=== PATIENT | male | born 1970 | race Caucasian/White ===

== ENCOUNTER 2022-11-19 22:12 | Observation (INO) | payer BC, SELFPAY ==
--- NOTE | 2022-11-19 | ECG_ITS ---
Test Reason : CHEST PAIN Blood Pressure : / mmHG Vent. Rate : 134 BPM Atrial Rate : 000 BPM P-R Int : 000 ms QRS Dur : 068 ms QT Int : 292 ms P-R-T Axes : 000 012 016 degrees QTc Int : 436 ms Atrial fibrillation with rapid ventricular response Abnormal ECG When compared with ECG of 09-AUG-2016 21:29, Atrial fibrillation has replaced Sinus rhythm Vent. rate has increased BY 66 BPM Referred By: Generic ED Physician Electronically Signed By:JAYDA BAUTISTA
--- NOTE | ~2022-11-19 | XR_ITS ---
EXAMINATION: XR CHEST CLINICAL INFORMATION: Shortness of breath COMPARISON: 08/09/2016 TECHNIQUE: Frontal view of the chest was obtained. FINDINGS: The lungs are clear with no focal consolidation. No evidence of pneumothorax, pulmonary edema, or pleural effusions. The cardiomediastinal silhouette is unremarkable. No acute osseous findings. XR/XR chest 1V IMPRESSION: No acute cardiopulmonary findings.
[2022-11-19 22:27] VITALS: BP 153/91; PULSE 110; RESP 16; TEMP 36.1; O2SAT 98; BMI 32.5
[2022-11-19 22:38] LABS: Hematocrit 44.1 % (42.0-52.0); Hemoglobin 15.9 g/dl (14.0-18.0); Mean Corpuscular HGB Conc 36.1 g/dl (31.0-36.0); Mean Corpuscular Hemoglobin 30.6 pg (27.0-33.0); Mean Corpuscular Volume 84.8 fL (80.0-98.0); Mean Platelet Volume 9.4 fL (9.4-12.4); Platelet Count 204 X10*3/uL (160-400); Red Cell Distribution Width 12.7 % (11.0-16.0); White Blood Count 9.1 X10*3/uL (4.8-10.8)
[2022-11-19 22:55] LABS: Alanine Aminotransferase 66 U/L (0-40); Albumin Level 4.3 g/dL (3.5-5.0); Alkaline Phosphatase 96 U/L (39-117); Anion Gap 16 (12-20); Aspartate Amino Transferase 51 U/L (5-37); Bilirubin Total 0.8 mg/dL (0.0-1.0); Blood Urea Nitrogen 25 mg/dL (9-16); Carbon Dioxide 23 mmol/L (22-29); Chloride 104 mmol/L (96-108); Estimated Glomerular Filt Rate > 60; Glucose Random 106 mg/dL (60-115); Potassium 3.8 mmol/L (3.3-5.1); Sodium 139 mmol/L (135-145); Total Protein 7.4 g/dL (6.5-8.0)
[2022-11-19 23:27] LABS: B Type Natriuretic Peptide 30 pg/mL (<100)
[2022-11-19] MEDS: Metoprolol Tartrate 5 MG/5 ML VIAL IVPUSH (23:40)
[2022-11-19 23:46] VITALS: BP 134/90; PULSE 96; RESP 15; TEMP 36.8; O2SAT 96
--- NOTE | 2022-11-19 23:53 | PC.NURSE ---
Pt aox4 resting at the bedside. Breaths are even and unlabored. Sinus tach on monitor with HR between 110-165bpm. Metoprolol administered as ordered. Pt tolerated well. Reports no pain or discomfort at this time. Will continue to monitor.
[2022-11-20 00:07] LABS: COVID-19 Test Negative (Negative); IDNOW Serial# BCCEAD1C
[2022-11-20] MEDS: Metoprolol Tartrate 5 MG/5 ML VIAL IVPUSH ×2 (00:32→02:59)
--- NOTE | 2022-11-20 00:35 | PC.NURSE ---
Pt medicated as ordered. Breaths are even and unlabored. Sinus tach on monitor with HR 130's. Reports no pain or discomfort at this time. Will continue to monitor.
[2022-11-20 00:38] VITALS: BMI 32.8
--- NOTE | 2022-11-20 00:44 | ED.CHESTPAIN ---
HPI - Chest Pain General Chief Complaint: Chest Pain Stated Complaint: short of breath, chest pain, heart racing Time Seen by Provider: 11/19/22 22:56 Source: patient Mode of arrival: ambulatory History of Present Illness HPI narrative: 52-year-old male who states that he started having chest pain at approximately 16:00 today and the pain got worse after his run with shortness of breath but denies any other medical problems. Patient states that he tried to go running today but was only able to run for approximately 5-6 minutes and then he became very short of breath. He denies any recent travel, is not on any medications, and denies any calf pain. He does state that he had several beers last night with some friends. Patient also describes feeling lightheaded. Related Data Allergies Allergy/AdvReac Type Severity Reaction Status Date / Time No Known Allergies Allergy Unverified 06/03/20 15:33 Review of Systems Review of Systems: Pertinent positives and negatives as stated in HPI [facility]LY [facility] Past Medical History Source: nursing notes reviewed Social History Social History Alcohol intake: current Alcohol intake frequency: a few times a week Alcohol type: hard liquor Use of substances other than those prescribed or required for medical reasons: No Advance Directives: No Advance Directives Information Provided: No Physical Exam Vital Signs: Vital Signs: Last Vital Signs Temp 98.3 F 11/19/22 23:46 Pulse 96 11/19/22 23:46 Resp 15 11/19/22 23:46 BP 134/90 H 11/19/22 23:46 Pulse Ox 96 11/19/22 23:46 O2 Del Method 11/19/22 23:46 BMI result Body Mass Index 32.8 VITAL SIGNS: Reviewed. GENERAL: Well developed, well nourished, in no acute distress. HEAD: Normocephalic/atraumatic EYES: PERRLA, EOMI LUNGS: Normal breath sounds. No adventitious sounds or accessory muscle use. SpO2<96> CARDIOVASCULAR: IRR/IRR without noted murmurs ABDOMEN: Soft, non-tender, non-distended with bowel sounds. MUSCULOSKELETAL: No tenderness, deformities, or effusions noted on gross inspection. EXTREMITIES: No cyanosis, clubbing or edema. SKIN: Inspection of the skin reveals no rashes NEUROLOGIC: Alert and oriented x 4. Strength and sensation to light touch were grossly intact x 4. Medications Administered Discontinued Medications Generic Name Dose Route Start Last Admin Trade Name Freq PRN Reason Stop Dose Admin Metoprolol Tartrate 5 mg 11/19/22 23:26 11/19/22 23:40 Metoprolol Tartrate 5 Mg/5 Ml Vial IVPUSH 11/19/22 23:27 5 mg ONCE ONE Administration Metoprolol Tartrate 5 mg 11/20/22 00:14 11/20/22 00:32 Metoprolol Tartrate 5 Mg/5 Ml Vial IVPUSH 11/20/22 00:15 5 mg ONCE ONE Administration Medical Decision Making Medical Decision Making MDM Narrative: 52-year-old male who comes in with lightheadedness, shortness of breath and a fast heart rate. Patient has no other medical history and has otherwise been feeling well. Labs, EKG, Lopressor. 2327: 5 mg of Lopressor, IV push given with minimal effect on heart rate. 0015: 5 mg of Lopressor, IV push given with significant improvement of heart rate. On review of laboratory investigations there are are no findings to suggest infection, anemia, electrolyte abnormalities. 0209: I gave patient p.o. 25 mg Lopressor. Differential Diagnosis Please see the discussion above Consult Healthcare Provider Management of the patient was discussed with: Hospitalist 0200: I discussed the case with inpatient hospitalist who accepts admission. Lab Data Please see the discussion above 11/19/22 22:32 11/19/22 22:32 Labs: Lab Results 11/19/22 11/19/22 11/19/22 Range/Units 22:32 22:32 22:32 WBC 9.1 (4.8-10.8) X10*3/uL RBC 5.20 (4.60-5.80) X10*6/uL Hgb 15.9 (14.0-18.0) g/dl Hct 44.1 (42.0-52.0) % MCV 84.8 (80.0-98.0) fL MCH 30.6 (27.0-33.0) pg MCHC 36.1 H (31.0-36.0) g/dl RDW 12.7 (11.0-16.0) % Plt Count 204 (160-400) X10*3/uL MPV 9.4 (9.4-12.4) fL Absolute Nucleated RBC 0.000 (0.0-0.012) X10*3/uL Nucleated RBC % (auto) 0.0 (0.0-0.2) /100WBC Sodium 139 (135-145) mmol/L Potassium 3.8 (3.3-5.1) mmol/L Chloride 104 (96-108) mmol/L Carbon Dioxide 23 (22-29) mmol/L Anion Gap 16 (12-20) BUN 25 H (9-16) mg/dL Creatinine 0.90 (0.5-1.4) mg/dL Estim Creat Clear Calc 113.0 Estimated GFR > 60 Random Glucose 106 (60-115) mg/dL Calcium 9.0 (8.4-10.2) mg/dL Magnesium 2.1 (1.6-2.6) mg/dL Total Bilirubin 0.8 (0.0-1.0) mg/dL AST 51 H (5-37) U/L ALT 66 H (0-40) U/L Alkaline Phosphatase 96 (39-117) U/L Troponin I High Sens 25.0 (<3.5-35.0) ng/L B-Natriuretic Peptide (<100) pg/mL Total Protein 7.4 (6.5-8.0) g/dL Albumin 4.3 (3.5-5.0) g/dL COVID-19 (DAVID) (Negative) COVID-19 Clin Com 11/19/22 11/19/22 11/20/22 Range/Units 22:32 23:43 01:34 WBC (4.8-10.8) X10*3/uL RBC (4.60-5.80) X10*6/uL Hgb (14.0-18.0) g/dl Hct (42.0-52.0) % MCV (80.0-98.0) fL MCH (27.0-33.0) pg MCHC (31.0-36.0) g/dl RDW (11.0-16.0) % Plt Count (160-400) X10*3/uL MPV (9.4-12.4) fL Absolute Nucleated RBC (0.0-0.012) X10*3/uL Nucleated RBC % (auto) (0.0-0.2) /100WBC Sodium (135-145) mmol/L Potassium (3.3-5.1) mmol/L Chloride (96-108) mmol/L Carbon Dioxide (22-29) mmol/L Anion Gap (12-20) BUN (9-16) mg/dL Creatinine (0.5-1.4) mg/dL Estim Creat Clear Calc Estimated GFR Random Glucose (60-115) mg/dL Calcium (8.4-10.2) mg/dL Magnesium (1.6-2.6) mg/dL Total Bilirubin (0.0-1.0) mg/dL AST (5-37) U/L ALT (0-40) U/L Alkaline Phosphatase (39-117) U/L Troponin I High Sens 15.0 (<3.5-35.0) ng/L B-Natriuretic Peptide 30 (<100) pg/mL Total Protein (6.5-8.0) g/dL Albumin (3.5-5.0) g/dL COVID-19 (DAVID) Negative (Negative) COVID-19 Clin Com See Note Independent Interpretation I performed an independent interpretation of an: EKG Interpretation: Atrial fibrillation with RVR, HR-134, no STEMI, QRS/QTC is within normal limits. Discharge Plan Discharge Clinical Impression: Atrial fibrillation with RVR, New onset a-fib Patient Disposition: Admitted As Inpatient
[2022-11-20 00:56] LABS: Magnesium 2.1 mg/dL (1.6-2.6)
--- NOTE | 2022-11-20 01:17 | ECG_ITS ---
Test Reason : REPECT Blood Pressure : / mmHG Vent. Rate : 105 BPM Atrial Rate : 000 BPM P-R Int : 000 ms QRS Dur : 082 ms QT Int : 328 ms P-R-T Axes : 000 019 014 degrees QTc Int : 433 ms Atrial fibrillation with rapid ventricular response Abnormal ECG When compared with ECG of 19-NOV-2022 22:21, No significant changes seen Referred By: Rita Sevilla Electronically Signed By:JAYDA BAUTISTA
--- NOTE | 2022-11-20 02:16 | P.HPHOSP_ITS ---
History of Present Illness Date of Service: 11/20/22 Chief Complaint: Chest discomfort This is a 52-year-old male with no pertinent past medical history and not on prescription medications who presents to the emergency department for evaluation of chest discomfort and palpitations. Patient states he tried to go running at 16:00 and he had intense midsternal chest discomfort with palpitations. Patient had to stop as he could not run further. Patient denies similar complaints in the past. He denies ever seeing a learning disabled teacher or having heart rhythm problems. No thyroid issues. Patient denies fever, chills, cough, shortness of breath, abdominal pain, changes in urinary or bowel habits. Admits to drinking about 4- 6 beers every night. Never has had alcohol withdrawal. In the emergency department, patient was found to be in AFib with RVR Review of Systems Constitutional: Constitutional: Reports no additional constitutional complaints Cardiovascular: Cardiovascular: Reports chest pain and Reports palpitations Respiratory: Respiratory: Reports no additional respiratory complaints Gastrointestinal: Gastrointestinal: Reports no additional gastrointestinal complaints Genitourinary: Genitourinary: Reports no additional male genitourinary complaints Endocrine: Endocrine: Reports palpitations PMFSH Functional capacity: independent ambulation Pertinent family history: No family history of CAD Social History Alcohol intake: current Alcohol intake frequency: a few times a week Alcohol type: hard liquor Use of substances other than those prescribed or required for medical reasons: No Advance Directives: No Advance Directives Information Provided: No Meds Allergies Allergy/AdvReac Type Severity Reaction Status Date / Time No Known Allergies Allergy Unverified 06/03/20 15:33 Physical Exam Vital Signs and Narrative: Vital Signs: Last Vital Signs Temp 98.3 F 11/19/22 23:46 Pulse 96 11/19/22 23:46 Resp 15 11/19/22 23:46 BP 134/90 H 11/19/22 23:46 Pulse Ox 96 11/19/22 23:46 O2 Del Method 11/19/22 23:46 BMI result Body Mass Index 32.8 Middle-aged male lying in bed in no distress Neck supple, no JVD Irregularly irregular, S1-S2 heard Regular breath sounds bilaterally, no wheezing or crackles appreciated Abdomen soft nontender, no guarding, no rigidity Patient is awake, alert and oriented to self, place, time and person ; no focal motor deficit Psych: Normal mood No pedal edema Results Labs 11/19/22 22:32 11/19/22 22:32 Labs: Laboratory Results - last 24 hr 11/19/22 11/19/22 11/19/22 22:32 22:32 22:32 MCV 84.8 MCH 30.6 MCHC 36.1 H RDW 12.7 Plt Count 204 MPV 9.4 Absolute Nucleated RBC 0.000 Nucleated RBC % (auto) 0.0 Anion Gap 16 Estim Creat Clear Calc 113.0 Estimated GFR > 60 Random Glucose 106 Calcium 9.0 Magnesium 2.1 Total Bilirubin 0.8 AST 51 H ALT 66 H Alkaline Phosphatase 96 Troponin I High Sens 25.0 B-Natriuretic Peptide Total Protein 7.4 Albumin 4.3 COVID-19 (DAVID) COVID-19 [employer] Com 11/19/22 11/19/22 11/20/22 22:32 23:43 01:34 MCV MCH MCHC RDW Plt Count MPV Absolute Nucleated RBC Nucleated RBC % (auto) Anion Gap Estim Creat Clear Calc Estimated GFR Random Glucose Calcium Magnesium Total Bilirubin AST ALT Alkaline Phosphatase Troponin I High Sens 15.0 B-Natriuretic Peptide 30 Total Protein Albumin COVID-19 (DAVID) Negative COVID-19 Clin Com See Note Assessment and Plan (1) New onset a-fib: Status: Acute Plan This is a 52-year-old male with no pertinent past medical history and not on prescription medications who presents to the emergency department for evaluation of chest discomfort and palpitations. #. 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 Obtaining TSH and echocardiogram. Consulted Cardiology, appreciate assistance. Patient received IV and p.o. beta-percy in the ER. [id number] score is 0 #. Alcohol use disorder: Monitor CIWA. Obtaining magnesium and folate levels. Initiating thiamine DVT prophylaxis: Lovenox 40 mg daily Full code Regular diet Time Spent With Patient Time: Total time managing care of this patient today ____ minutes. Quality Stroke Does the patient have a stroke diagnosis?: No VTE Prior VTE?: No VTE Risk Level:: Medical - moderate - high VTE Device Contraindication: Treatment Not Indicated VTE Drug Contraindication: N/A - Med Ordered
[2022-11-20] MEDS: Metoprolol Tartrate 25 MG TABLET PO (02:59)
[2022-11-20] MEDS: Enoxaparin Sodium 40 MG/0.4 ML SYRINGE SUBCUT (03:00)
[2022-11-20] MEDS: dilTIAZem HCL 50 MG/10 ML VIAL 10 MG IVPUSH (03:29)
[2022-11-20] MEDS: Thiamine HCL 100 MG TABLET PO ×2 (03:29→08:48)
[2022-11-20 05:17] VITALS: BP 103/66; PULSE 90; RESP 13; TEMP 36.7; O2SAT 96
--- NOTE | 2022-11-20 05:20 | PC.NURSE ---
Med req completed
--- NOTE | 2022-11-20 05:22 | PC.NURSE ---
Pt aox4 resting at the bedside in no apparent distress. Breaths are even and unlabored. NSR on monitor with HR of 90. Reports no chest pain or discomfort at this time. Will continue to monitor.
[2022-11-20 05:38] LABS: MANUAL DIFF FLAG NO
[2022-11-20 05:42] LABS: Basophils Percent Auto 0.4 % (0-2); Eosinophils Absolute Auto 0.1 X10*3/uL (0.0-0.4); Hematocrit 42.8 % (42.0-52.0); Hemoglobin 15.2 g/dl (14.0-18.0); Imm Gran Abs Auto 0.02 X10*3/uL (0.00-0.03); Imm Gran Pct Auto 0.3 % (0.0-0.4); Lymphocytes Absolute Auto 2.4 X10*3/uL (1.2-4.9); Lymphocytes Percent Auto 34.3 % (20-40); Mean Corpuscular HGB Conc 35.5 g/dl (31.0-36.0); Mean Corpuscular Hemoglobin 30.1 pg (27.0-33.0); Mean Corpuscular Volume 84.8 fL (80.0-98.0); Mean Platelet Volume 9.8 fL (9.4-12.4); Monocytes Absolute Auto 0.6 X10*3/uL (0.1-1.2); Neutrophils Absolute Auto 3.8 x10*3/uL (2.0-8.3); Platelet Count 187 X10*3/uL (160-400); Red Blood Count 5.05 X10*6/uL (4.60-5.80); Red Cell Distribution Width 12.7 % (11.0-16.0)
[2022-11-20 06:05] LABS: Troponin-I High Sensitivity 10.4 ng/L (<3.5-35.0)
[2022-11-20 06:06] LABS: Anion Gap 14 (12-20); Blood Urea Nitrogen 20 mg/dL (9-16); Calcium 8.7 mg/dL (8.4-10.2); Carbon Dioxide 24 mmol/L (22-29); Chloride 107 mmol/L (96-108); Creatinine Clr Calc Pharmacy 123.1; Estimated Glomerular Filt Rate > 60; Glucose Random 97 mg/dL (60-115); Magnesium 2.1 mg/dL (1.6-2.6); Sodium 141 mmol/L (135-145)
[2022-11-20 06:34] LABS: Folate 11.2 ng/mL (> or = 4.0)
--- NOTE | 2022-11-20 07:00 | CA_ITS ---
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 The calculated ejection fraction is 54% by biplane method. - No obvious valvular pathology seen on this study. Findings Left Ventricle Normal left ventricular cavity size. The left ventricular systolic function is low normal. The calculated ejection fraction is 54% by biplane method. There is no evidence of regional wall motion abnormalities. Diastolic function is normal for age. There is mild septal asymmetric hypertrophy. LV peak GLS -17.6%. Right Ventricle Normal right ventricular cavity size and systolic function. Atria Both atria are normal in size. Aortic Valve There is a normal trileaflet aortic valve. There is no aortic valve stenosis. There is no aortic valve regurgitation. Mitral Valve The mitral valve appears normal. There is no mitral valve regurgitation. There is no mitral valve stenosis. Pulmonic Valve The pulmonic valve is likely normal. Tricuspid Valve There is trace tricuspid valve regurgitation. There is no evidence of pulmonary hypertension. Great Vessels The aortic annulus, sinuses of valsalva, and asc aorta are normal in size. Venous The inferior vena cava is normal in size and collapses less than 50% with inspiration. Pericardium/Pleural There is no evidence of pericardial effusion. Prior Study Comparison No prior study available for comparison. Recommendations, Care & Conclusions No obvious valvular pathology seen on this study. Measurements 2D Linear Measurements IVSd: 1.10 0.6-0.9/0.6-1.0 cm LVIDd: 4.71 3.9-5.3/4.2-5.9 cm LVIDd Index: 2.18 2.4-3.2/2.2-3.1 cm/m2 LVIDs: 3.33 2.0-3.6 cm LVPWd: 0.89 0.7-1.1 cm LV Mass: 204.55 67-162/88-224 g LV Mass Index: 94.70 43-95/49-115 g/m2 LVOT Diam: 2.30 3.0+(-)1.3 cm 2D Systolic Function EF 4C: 58.60 >55% EF 2C: 45.30 >55% EF BiP: 53.50 >55% Mitral Valve MV Pk E: 0.69 MV PK A: 0.63 MV Decel Time: 185.00 E/A: 1.10 E'Lateral: 10.70 E'Medial: 9.14 E/E' Med: 7.50 E/E' Lat: 6.40 PHT: 54.00 MVA PHT: 4.07 Decel [place]: 3.72 Aortic Valve AoV Pk Mook: 1.16 AoV Pk Grad: 5.00 SHONA: 3.66 LVOT LVOT Pk Mook: 0.97 LVOT Mn Mook: 0.60 LVOT VTI: 0.19 LVOT Pk Grad: 4.00 LVOT Mn Grad: 2.00 LVOT Diam: 2.30 LVOT Area: 4.15 Diastolic Function MV Pk E: 0.69 MV Pk A: 0.63 E/A: 1.10 E'Medial: 9.14 E/E' Med: 7.50 E' Laterial: 10.70 E/E' Lat: 6.40 Right Ventricle TAPSE (mm): 17.80 TVS' Mook: 10.80 Tricuspid Valve TR Pk Mook: 1.98 TR Pk Grad: 16.00 RA Press: 8.00 RVSP: 24.00 Great Vessels Aorta Sinus of Valsalva: 2.90 2.0-3.5 cm Ao Asc: 3.00 2.1-3.4 cm Pulmonary Veins Pulm Vein S/D 1.30 Pulmonary Valve PV Pk Mook: 0.88 Peak PV Grad: 3.00 Updated in Other Vendor System with Status of Final Damaso Sheriff MD electronically signed on 11/20/2022 4:16:15 PM with status of Final
--- NOTE | 2022-11-20 07:50 | PHA.MEDREC ---
Pharmacy Consult ? Medication Reconciliation Pharmacy has completed the medication reconciliation. Patient claims no regular medications but has a few prn medications. Unknown last date taken for them.
[2022-11-20 08:00] VITALS: BP 115/78; PULSE 71; RESP 14; TEMP 36.7; O2SAT 96
[2022-11-20] MEDS: 0.9 % Sodium Chloride Flush 3 ML SYRINGE IVFLUSH (08:48)
[2022-11-20] MEDS: Acetaminophen 325 MG TABLET 650 MG PO (08:48)
--- NOTE | 2022-11-20 10:17 | PM.CNCAR ---
History of Present Illness History of Present Illness Date of Service: 11/20/22 Chief complaint: Chest discomfort Narrative: This is a cardiology consultation regarding atrial fibrillation with rapid rate. Patient does not have any known cardiac issues. No history of any coronary artery disease or myocardial infarction or cardiomyopathy or in fact any other cardiac issues. He states he is fairly healthy. He runs every so often but not every day. Nonsmoker. History of excessive alcohol use. Yesterday, he tried to go running on all of a sudden felt a discomfort in the chest with palpitations. Then he came to the emergency room and found to be in atrial fibrillation rapid rate. It seems that he got IV diltiazem as well as IV metoprolol and oral metoprolol in the emergency room based on documentation. Now he is back in normal sinus rhythm. He states he is feeling better. No previous issues in this regard. He works in [employer]. Otherwise, no family history of any premature CAD or cardiomyopathy or any major cardiac issues. Review of Systems Review of Systems: Yes all other systems are reviewed and are negative Constitutional: Constitutional: Reports as per HPI and Reports no additional constitutional complaints Eyes: Eyes: Reports as per HPI and Denies no additional eye complaints ENT: Denies system reviewed and no additional complaints, except as documented and Reports as per HPI Cardiovascular: Cardiovascular: Reports as per HPI, Reports no additional cardiovascular complaints, Denies acrocyanosis, Denies cool extremities, Denies chest pain, Denies leg edema, Denies lightheadedness, Denies palpitations and Denies dyspnea Respiratory: Respiratory: Reports as per HPI, Denies no additional respiratory complaints and Denies dyspnea Gastrointestinal: Gastrointestinal: Reports as per HPI and Denies no additional gastrointestinal complaints Genitourinary: Genitourinary: Reports no additional male genitourinary complaints and Reports as per HPI Musculoskeletal: Musculoskeletal: Reports no additional musculoskeletal complaints and Reports as per HPI Integumentary/Breasts: Skin/Breast: Reports system reviewed and no additional complaints, except as docu Neurologic: Reports system reviewed and no additional complaints, except as documented and Reports as per HPI Psychiatric: Psychiatric: Reports no additional psychiatric complaints and Reports as per HPI Endocrine: Endocrine: Reports no additional endocrine complaints, Reports as per HPI and Denies palpitations Hematologic/Lymphatic: Hematologic/Lymphatic: Reports no additional hematologic/lymphatic complaints and Reports as per HPI Allergic/Immunologic: Allergic/Immunologic: Reports no additional allergic/immunologic complaints and Reports as per [facility] Past Medical History Cognitive capacity: No significant past medical history per patient. Functional capacity: independent ambulation Family History Family History (Updated 11/20/22 @ 10:19 by Damaso Sheriff MD) Brother Diabetes Sister Diabetes Social History Social History Alcohol intake: current Alcohol intake frequency: a few times a week Alcohol type: hard liquor Patient Tobacco Use Status: Never used Tobacco Use of substances other than those prescribed or required for medical reasons: No Advance Directives: No Advance Directives Information Provided: No Nutrition Risks: No Nutritional Risk Meds Allergies Allergy/AdvReac Type Severity Reaction Status Date / Time No Known Allergies Allergy Unverified 06/03/20 15:33 Active Medications: Current Medications Acetaminophen (Acetaminophen 325 Mg Tablet) 650 mg PO Q6H PRN PRN Reason: Pain, Mild (Pain Scale 1-3) Last Admin: 11/20/22 08:48 Dose: 650 mg Enoxaparin Sodium (Enoxaparin Sodium 40 Mg/0.4 Ml Syringe) 40 mg SUBCUT Q24H [facility] Last Admin: 11/20/22 03:00 Dose: 40 mg Melatonin (Melatonin 3 Mg Tablet) 6 mg PO BEDTIME PRN PRN Reason: Insomnia Ondansetron HCl (Ondansetron Hcl 4 Mg/2 Ml Vial) 4 mg IVPUSH Q8H PRN PRN Reason: Nausea and Vomiting Pharmacy Consult (Consult Rx Perform Med Rec) 1 each MISCELLANE ONCE PRN PRN Reason: Consult order Sodium Chloride (0.9 % Sodium Chloride Flush 3 Ml Syringe) 3 ml IVFLUSH QSHIFT [facility] Last Admin: 11/20/22 08:48 Dose: 3 ml Thiamine HCl (Thiamine Hcl 100 Mg Tablet) 100 mg PO DAILY [facility] Last Admin: 11/20/22 08:48 Dose: 100 mg Home Medications Medication Instructions Recorded Confirmed Last Taken Type esomeprazole magnesium 20 mg 1 cap PO DAILY@0630 11/20/22 11/20/22 Unknown History capsule,delayed release propylene glycol 1 %-glycerin 0.3 1 drp ophthalmic (eye) DAILY PRN 11/20/22 11/20/22 Unknown History % eye drops (Artificial Tears Dry Eye(S) (glycerin-peg)) valacyclovir 500 mg tablet 1 tab PO DAILY PRN Outbreak 11/20/22 11/20/22 Unknown History Physical Exam Vital Signs: Vital Signs: Last Vital Signs Temp 98.1 F 11/20/22 08:00 Pulse 71 11/20/22 08:00 Resp 14 11/20/22 08:00 BP 115/78 11/20/22 08:00 Pulse Ox 96 11/20/22 08:00 O2 Del Method 11/20/22 08:00 BMI result Body Mass Index 32.8 Objective Labs and Meds 11/20/22 05:32 11/20/22 05:32 Lab results: Laboratory Results - last 24 hr 11/19/22 11/19/22 11/19/22 22:32 22:32 22:32 WBC 9.1 RBC 5.20 Hgb 15.9 Hct 44.1 MCV 84.8 MCH 30.6 MCHC 36.1 H RDW 12.7 Plt Count 204 MPV 9.4 Immature Gran % (Auto) Neut % (Auto) Lymph % (Auto) Page % (Auto) Eos % (Auto) Baso % (Auto) Lymph # (Auto) Page # (Auto) Eos # (Auto) Baso # (Auto) Abs Immat Gran (auto) Absolute Neuts (auto) Absolute Nucleated RBC 0.000 Nucleated RBC % (auto) 0.0 Sodium 139 Potassium 3.8 Chloride 104 Carbon Dioxide 23 Anion Gap 16 BUN 25 H Creatinine 0.90 Estim Creat Clear Calc 113.0 Estimated GFR > 60 Random Glucose 106 Calcium 9.0 Magnesium 2.1 Total Bilirubin 0.8 AST 51 H ALT 66 H Alkaline Phosphatase 96 Troponin I High Sens 25.0 B-Natriuretic Peptide Total Protein 7.4 Albumin 4.3 Folate COVID-19 (DAVID) COVID-19 Clin Com 11/19/22 11/19/22 11/20/22 22:32 23:43 01:34 WBC RBC Hgb Hct MCV MCH MCHC RDW Plt Count MPV Immature Gran % (Auto) Neut % (Auto) Lymph % (Auto) Page % (Auto) Eos % (Auto) Baso % (Auto) Lymph # (Auto) Page # (Auto) Eos # (Auto) Baso # (Auto) Abs Immat Gran (auto) Absolute Neuts (auto) Absolute Nucleated RBC Nucleated RBC % (auto) Sodium Potassium Chloride Carbon Dioxide Anion Gap BUN Creatinine Estim Creat Clear Calc Estimated GFR Random Glucose Calcium Magnesium Total Bilirubin AST ALT Alkaline Phosphatase Troponin I High Sens 15.0 B-Natriuretic Peptide 30 Total Protein Albumin Folate COVID-19 (DAVID) Negative COVID-19 Clin Com See Note 11/20/22 11/20/22 11/20/22 05:32 05:32 05:32 WBC 7.0 RBC 5.05 Hgb 15.2 Hct 42.8 MCV 84.8 MCH 30.1 MCHC 35.5 RDW 12.7 Plt Count 187 MPV 9.8 Immature Gran % (Auto) 0.3 Neut % (Auto) 54.0 Lymph % (Auto) 34.3 Page % (Auto) 9.0 Eos % (Auto) 2.0 Baso % (Auto) 0.4 Lymph # (Auto) 2.4 Page # (Auto) 0.6 Eos # (Auto) 0.1 Baso # (Auto) 0.0 Abs Immat Gran (auto) 0.02 Absolute Neuts (auto) 3.8 Absolute Nucleated RBC 0.000 Nucleated RBC % (auto) 0.0 Sodium 141 Potassium 4.0 Chloride 107 Carbon Dioxide 24 Anion Gap 14 BUN 20 H Creatinine 0.83 Estim Creat Clear Calc 123.1 Estimated GFR > 60 Random Glucose 97 Calcium 8.7 Magnesium 2.1 Total Bilirubin AST ALT Alkaline Phosphatase Troponin I High Sens 10.4 B-Natriuretic Peptide Total Protein Albumin Folate 11.2 COVID-19 (DAVID) COVID-19 Clin Com ECG Interpretation: Initial EKG with atrial fibrillation rapid rate of 134/Min. Currently normal sinus rhythm. Imaging Radiologist's impression: Impressions Chest X-Ray 11/20/22 02:30 IMPRESSION: No acute cardiopulmonary findings. Assessment and Plan (1) Atrial fibrillation with RVR: Status: Acute (2) Excessive drinking alcohol: Status: Acute Plan Atrial fibrillation rapid ventricular rate probably precipitated by alcohol excess. Currently normal sinus rhythm. Total duration of the arrhythmia around 14 hours or so. Recommend starting on a small dose of beta-percy at least for the foreseeable future. He has very low thromboembolic risk and does not need anticoagulation. Echocardiogram if it can be completed today. If not as an outpatient. Subsequently, patient stress testing. Will arrange follow-up. Discussed with Dr. Betancourt. Time Spent With Patient Time: Total time managing care of this patient today 77 minutes. Procedures Date of Service Date of Service: 11/20/22
--- NOTE | 2022-11-20 10:39 | PC.NURSE ---
pt AOx3. NSR on the monitor - 66bpm. pt in no apparent distress, reports no pain or discomfort. will continue to monitor.
[2022-11-20 10:43] VITALS: BP 113/86; PULSE 72; RESP 16; O2SAT 96
[2022-11-20 12:40] VITALS: BP 107/73; PULSE 72; RESP 16; TEMP 36.8
--- NOTE | 2022-11-20 12:43 | PC.NURSE ---
CIWA score negative pt resting calmly, no apparent distress. Awaiting bed upstairs. pt reports no pain at this time NSR on the monitor 72HR
--- NOTE | 2022-11-20 13:29 | PC.NURSE ---
bedside echo being performed
--- NOTE | 2022-11-20 13:51 | PC.NURSE ---
called [facility] to give report for pt. Was told to Broderick Bhatt for report. Texted RN, awaiting return call.
--- NOTE | 2022-11-20 14:23 | PC.NURSE ---
report given to the floor, charge aware, transport aware
[2022-11-20 15:03] VITALS: BP 115/76; PULSE 76; RESP 18; TEMP 37.1; O2SAT 96
--- NOTE | 2022-11-20 15:03 | P.PNIM_ITS ---
Subjective Subjective Date of Service: 11/20/22 Interval History: no acute issues since admission. Spontaneously converted to sinus rhythm earlier this morning. No recurrence of AFib Review of Systems denies chest pain Denies shortness of breath Denies nausea vomiting diarrhea Denies fever chills Physical Exam Vital Signs: Vital Signs: Last Vital Signs Temp 98.7 F 11/20/22 15:03 Pulse 76 11/20/22 15:03 Resp 18 11/20/22 15:03 BP 115/76 11/20/22 15:03 Pulse Ox 96 11/20/22 15:03 O2 Del Method 11/20/22 15:03 O2 Flow Rate 96 11/20/22 12:40 BMI result Body Mass Index 32.8 Const: Other: awake alert oriented x3 no acute distress Resp: Other: clear to auscultation bilaterally no rales rhonchi wheezes Cardio: Other: regular rate and rhythm; no S4; positive S1-S2; no S3 murmurs rubs or gallops GI: Other: soft nontender nondistended normoactive bowel sounds Extrem: Other: no edema bilaterally Objective Data Active Medications Acetaminophen (Acetaminophen 325 Mg Tablet) 650 mg PO Q6H PRN PRN Reason: Pain, Mild (Pain Scale 1-3) Last Admin: 11/20/22 08:48 Dose: 650 mg Documented By: REX Enoxaparin Sodium (Enoxaparin Sodium 40 Mg/0.4 Ml Syringe) 40 mg SUBCUT Q24H [facility] Last Admin: 11/20/22 03:00 Dose: 40 mg Documented By: GABRIEL Melatonin (Melatonin 3 Mg Tablet) 6 mg PO BEDTIME PRN PRN Reason: Insomnia Non-Formulary Medication (Esomeprazole Magnesium) 1 cap PO DAILY@0630 [facility] Ondansetron HCl (Ondansetron Hcl 4 Mg/2 Ml Vial) 4 mg IVPUSH Q8H PRN PRN Reason: Nausea and Vomiting Pharmacy Consult (Consult Rx Perform Med Rec) 1 each MISCELLANE ONCE PRN PRN Reason: Consult order Sodium Chloride (0.9 % Sodium Chloride Flush 3 Ml Syringe) 3 ml IVFLUSH QSHIFT [facility] Last Admin: 11/20/22 08:48 Dose: 3 ml Documented By: REX Thiamine HCl (Thiamine Hcl 100 Mg Tablet) 100 mg PO DAILY [facility] Last Admin: 11/20/22 08:48 Dose: 100 mg Documented By: REX Labs 11/20/22 05:32 11/20/22 05:32 Labs: Laboratory Results - last 24 hr 11/19/22 11/19/22 11/19/22 22:32 22:32 22:32 MCV 84.8 MCH 30.6 MCHC 36.1 H RDW 12.7 Plt Count 204 MPV 9.4 Immature Gran % (Auto) Neut % (Auto) Lymph % (Auto) [place] % (Auto) Eos % (Auto) Baso % (Auto) Lymph # (Auto) [place] # (Auto) Eos # (Auto) Baso # (Auto) Abs Immat Gran (auto) Absolute Neuts (auto) Absolute Nucleated RBC 0.000 Nucleated RBC % (auto) 0.0 Anion Gap 16 Estim Creat Clear Calc 113.0 Estimated GFR > 60 Random Glucose 106 Calcium 9.0 Magnesium 2.1 Total Bilirubin 0.8 AST 51 H ALT 66 H Alkaline Phosphatase 96 Troponin I High Sens 25.0 B-Natriuretic Peptide Total Protein 7.4 Albumin 4.3 Folate COVID-19 (DAVID) COVID-[employer] 11/19/22 11/19/22 11/20/22 22:32 23:43 01:34 MCV MCH MCHC RDW Plt Count MPV Immature Gran % (Auto) Neut % (Auto) Lymph % (Auto) [place] % (Auto) Eos % (Auto) Baso % (Auto) Lymph # (Auto) [place] # (Auto) Eos # (Auto) Baso # (Auto) Abs Immat Gran (auto) Absolute Neuts (auto) Absolute Nucleated RBC Nucleated RBC % (auto) Anion Gap Estim Creat Clear Calc Estimated GFR Random Glucose Calcium Magnesium Total Bilirubin AST ALT Alkaline Phosphatase Troponin I High Sens 15.0 B-Natriuretic Peptide 30 Total Protein Albumin Folate COVID-19 (DAVID) Negative COVID-[place] Com See Note 11/20/22 11/20/22 11/20/22 05:32 05:32 05:32 MCV 84.8 MCH 30.1 MCHC 35.5 RDW 12.7 Plt Count 187 MPV 9.8 Immature Gran % (Auto) 0.3 Neut % (Auto) 54.0 Lymph % (Auto) 34.3 [place] % (Auto) 9.0 Eos % (Auto) 2.0 Baso % (Auto) 0.4 Lymph # (Auto) 2.4 [place] # (Auto) 0.6 Eos # (Auto) 0.1 Baso # (Auto) 0.0 Abs Immat Gran (auto) 0.02 Absolute Neuts (auto) 3.8 Absolute Nucleated RBC 0.000 Nucleated RBC % (auto) 0.0 Anion Gap 14 Estim Creat Clear Calc 123.1 Estimated GFR > 60 Random Glucose 97 Calcium 8.7 Magnesium 2.1 Total Bilirubin AST ALT Alkaline Phosphatase Troponin I High Sens 10.4 B-Natriuretic Peptide Total Protein Albumin Folate 11.2 COVID-19 (DAVID) COVID-19 Clin Com Assessment and Plan (1) Atrial fibrillation with RVR: Status: Acute (2) Alcohol use disorder: Status: Acute Plan This is a 52-year-old male with no pertinent past medical history and not on prescription medications who presents to the emergency department for evaluation of chest discomfort and palpitations; found to be in atrial fibrillation with a rapid ventricular response. . . Spontaneously converted to sinus rhythm this a.m. 1.AFib with RVR, new onset( now in normal sinus rhythm) [id number] score is 0 - TSH and echocardiogram. - observe on telemetry overnight. . . Discharge home tomorrow after echo if no return of AFib 2.Alcohol use disorder -CIWA 0 - continue to observe Lovenox 40 mg daily Full code Regular diet requires ongoing hospitalization to observe on CIWA scale for alcohol withdrawal; to observe on telemetry to determine complete resolution of AFib Time Spent With Patient Time: Total time managing care of this patient today ____ minutes. Quality Stroke Does the patient have a stroke diagnosis?: No VTE Prior VTE?: No VTE Risk Level:: Medical - moderate - high VTE Device Contraindication: Treatment Not Indicated VTE Drug Contraindication: N/A - Med Ordered
--- NOTE | 2022-11-20 16:34 | PM.DS ---
DS: Providers Provider Date of Service: 11/20/22 Date of admission: 11/20/22 02:14 Date of discharge: 11/20/22 Primary care physician: Katey Null MD Consults: 11/20/22 02:14 Consult to Cardiology Routine Consulting Provider: [facility] Reason for consultation: afib Has provider been notified: Yes DS: Diagnosis Discharge Diagnosis (1) Atrial fibrillation with RVR: Status: Acute (2) Alcohol use disorder: Status: Acute DS: Summary Hospital Course Hospital Course: 52-year-old male with no pertinent past medical history and not on prescription medications who presents to the emergency department for evaluation of chest discomfort and palpitations.? Patient states he tried to go running at 16:00 and he had intense midsternal chest discomfort with palpitations.? Patient had to stop as he could not run further.? Patient denies similar complaints in the past.? He denies ever seeing a pedal assembler or having heart rhythm problems.? No thyroid issues.? Patient denies fever, chills, cough, shortness of breath, abdominal pain, changes in urinary or bowel habits.? Admits to drinking about 4-6 beers every night.? Never has had alcohol withdrawal. In the emergency department, patient was found to be in AFib with RVR Hospital Course early this a.m. patient spontaneously converted to normal sinus rhythm and has remained in normal sinus rhythm throughout the day. He is totally asymptomatic. 2D echo was done while inpatient and failed to demonstrate any acute wall motion abnormalities. Estimated LVEF was 54%. At this point in time I have discussed with Cardiology and patient will be sent home on metoprolol 25 b.i.d. to follow-up as outpatient for to complete his workup. Time Spent with Patient Time attestation: Total time managing care of this patient today ____ minutes. Discharge coordination time: Greater than 30 minutes Quality: Safe Use of Opioids Does Pt have an Active Cancer Diagnosis on the Problem List?: No Quality: Stroke Does the patient have a stroke diagnosis?: No Physical Exam Vital Signs: Vital Signs: Last Vital Signs Temp 98.7 F 11/20/22 15:03 Pulse 76 11/20/22 15:03 Resp 18 11/20/22 15:03 BP 115/76 11/20/22 15:03 Pulse Ox 96 11/20/22 15:03 O2 Del Method 11/20/22 15:03 O2 Flow Rate 96 11/20/22 12:40 BMI result Body Mass Index 32.8 Const: Other: awake alert oriented x3 no acute distress Resp: Other: clear to auscultation bilaterally no rales rhonchi wheezes Cardio: Other: regular rate and rhythm; no S4; positive S1-S2; no S3 murmurs rubs or gallops GI: Other: soft nontender nondistended normoactive bowel sounds Extrem: Other: no edema bilaterally DS: Data Data Completed and Pending Labs on day of discharge: Laboratory Results - last 24 hr 11/19/22 11/19/22 11/19/22 22:32 22:32 22:32 WBC 9.1 RBC 5.20 Hgb 15.9 Hct 44.1 MCV 84.8 MCH 30.6 MCHC 36.1 H RDW 12.7 Plt Count 204 MPV 9.4 Immature Gran % (Auto) Neut % (Auto) Lymph % (Auto) [place] % (Auto) Eos % (Auto) Baso % (Auto) Lymph # (Auto) [place] # (Auto) Eos # (Auto) Baso # (Auto) Abs Immat Gran (auto) Absolute Neuts (auto) Absolute Nucleated RBC 0.000 Nucleated RBC % (auto) 0.0 Sodium 139 Potassium 3.8 Chloride 104 Carbon Dioxide 23 Anion Gap 16 BUN 25 H Creatinine 0.90 Estim Creat Clear Calc 113.0 Estimated GFR > 60 Random Glucose 106 Calcium 9.0 Magnesium 2.1 Total Bilirubin 0.8 AST 51 H ALT 66 H Alkaline Phosphatase 96 Troponin I High Sens 25.0 B-Natriuretic Peptide Total Protein 7.4 Albumin 4.3 Folate COVID-19 (DAVID) COVID-19 Clin Com 11/19/22 11/19/22 11/20/22 22:32 23:43 01:34 WBC RBC Hgb Hct MCV MCH MCHC RDW Plt Count MPV Immature Gran % (Auto) Neut % (Auto) Lymph % (Auto) [place] % (Auto) Eos % (Auto) Baso % (Auto) Lymph # (Auto) [place] # (Auto) Eos # (Auto) Baso # (Auto) Abs Immat Gran (auto) Absolute Neuts (auto) Absolute Nucleated RBC Nucleated RBC % (auto) Sodium Potassium Chloride Carbon Dioxide Anion Gap BUN Creatinine Estim Creat Clear Calc Estimated GFR Random Glucose Calcium Magnesium Total Bilirubin AST ALT Alkaline Phosphatase Troponin I High Sens 15.0 B-Natriuretic Peptide 30 Total Protein Albumin Folate COVID-19 (DAVID) Negative COVID-19 Clin Com See Note 11/20/22 11/20/22 11/20/22 05:32 05:32 05:32 WBC 7.0 RBC 5.05 Hgb 15.2 Hct 42.8 MCV 84.8 MCH 30.1 MCHC 35.5 RDW 12.7 Plt Count 187 MPV 9.8 Immature Gran % (Auto) 0.3 Neut % (Auto) 54.0 Lymph % (Auto) 34.3 [place] % (Auto) 9.0 Eos % (Auto) 2.0 Baso % (Auto) 0.4 Lymph # (Auto) 2.4 [place] # (Auto) 0.6 Eos # (Auto) 0.1 Baso # (Auto) 0.0 Abs Immat Gran (auto) 0.02 Absolute Neuts (auto) 3.8 Absolute Nucleated RBC 0.000 Nucleated RBC % (auto) 0.0 Sodium 141 Potassium 4.0 Chloride 107 Carbon Dioxide 24 Anion Gap 14 BUN 20 H Creatinine 0.83 Estim Creat Clear Calc 123.1 Estimated GFR > 60 Random Glucose 97 Calcium 8.7 Magnesium 2.1 Total Bilirubin AST ALT Alkaline Phosphatase Troponin I High Sens 10.4 B-Natriuretic Peptide Total Protein Albumin Folate 11.2 COVID-19 (DAVID) COVID-19 Clin Com Discharge Plan Discharge Patient Disposition: Home, Self-Care Discharge Diagnosis: New onset AFib Referrals: Katey Null MD [Primary Care Provider] - 1 Week Discharge Medications: New metoprolol tartrate 25 mg tablet 25 mg PO BID Qty: 60 0RF Continued esomeprazole magnesium 20 mg capsule,delayed release(DR/EC) 1 cap PO DAILY@0630 valacyclovir 500 mg tablet 1 tab PO DAILY PRN (Reason: Outbreak) Artificial Tears(glycerin-peg) 1-0.3 % Drops 1 drp OPHTHALMIC (EYE) DAILY PRN (Reason: Dry Eye(S)) Discharge Orders: Discharge Order (Routine); Ordered 11/20/22 Ordered By: Rajat Betancourt Diet: Advance to usual diet Activity on Discharge: As tolerated Stand Alone Forms: Patient Portal Discharge page Care Plan Goals: continue metoprolol 25 mg twice daily until seen by Cardiology Health Concerns: avoid running aerobic exercises until evaluated by Cardiology as an outpatient Plan of Treatment: Cardiology will call you for follow-up appointment to complete the workup as an outpatient Assessment: see discharge summary
--- NOTE | 2022-11-21 08:09 | MHC.CM.PN ---
Patient d/c'd prior to being seen by case management.
== END 2022-11-20 17:38 | disposition home or self-care (01) ==
LOC: HO.ED 11-20 02:10 → HO.EDOVER 11-20 02:23 → HO.IMC 11-20 13:21
PROVIDERS: Admitting Provider Student in an Organized Health Care Education/Training Program; Emergency Provider Student in an Organized Health Care Education/Training Program; PCP Internal Medicine; Visit Provider Hospitalist
DX: I48.20 Chronic atrial fibrillation, unspecified (principal); F10.90 Alcohol use, unspecified, uncomplicated; Y90.9 Presence of alcohol in blood, level not specified; R06.02 Shortness of breath; Z20.822 Contact with and (suspected) exposure to COVID-19; Z79.899 Other long term (current) drug therapy
CPT/HCPCS: 36415; 71045; 80048; 80053; 82746; 83735; 83880; 84484; 85025; 85027; 87635; 93005; 93306; 93356; 96372; 96374; 96375; 96376; 99222; 99285; J1650; Q9957